=== PATIENT | female | born 1975 | race Caucasian/White ===

== ENCOUNTER → 2022-04-26 | Outpatient (CLI) | payer OTHER ==
[~2022-04-26] MED LIST: BENTYL 20MG TAB20 MG PO; HYDROCODON-ACE1 EAC4 PO; LASIX20 MG PO; LIORESAL TAB 1010 MG PO; NEURONTIN 300300 MG PO; NITROFURANTOIN100 MG PO; PERCOCET 7.5-31 EACH PO; PROZAC20 MG PO
== END | disposition home or self-care (01) ==
LOC: WCC 07:01
DX: L89.612 Pressure ulcer of right heel, stage 2 (principal); L89.622 Pressure ulcer of left heel, stage 2; R60.0 Localized edema; M62.3 Immobility syndrome (paraplegic); E66.01 Morbid (severe) obesity due to excess calories; Z68.33 Body mass index [BMI] 33.0-33.9, adult; Z88.0 Allergy status to penicillin

== ENCOUNTER → 2022-05-16 | Outpatient (CLI) | payer OTHER | END | disposition home or self-care (01) | LOC: WCC 07:47 | DX: L89.612 Pressure ulcer of right heel, stage 2 (principal); L89.622 Pressure ulcer of left heel, stage 2; M62.3 Immobility syndrome (paraplegic); E66.01 Morbid (severe) obesity due to excess calories; R60.0 Localized edema; Z68.33 Body mass index [BMI] 33.0-33.9, adult ==